=== PATIENT | female | born 1960 ===

== ENCOUNTER 2021-05-13 10:00 | Inpatient (IN) | payer OTHER ==
[~2021-05-13] VITALS: Ht 160 cm; Wt 81.6 kg
[2021-05-21] MEDS ORDERED: BACTRIM DS TAB1 EACH PO (06:16)
[2021-05-21] MEDS ORDERED: XARELTO10 MG PO (06:16)
[2021-05-21] MEDS ORDERED: OXYC1TAB9 PO (06:16)
[2021-05-21] MEDS ORDERED: INTEGRA PLUS C1 EACH PO (06:16)
== END 2021-05-21 12:19 | DRG 470 ==
LOC: O/R 05-19 05:45 → SURH 05-19 05:45
PROVIDERS: ADMIT Orthopaedic Surgery Sports Medicine; ATTEND Orthopaedic Surgery Sports Medicine
PROC: 0SRD0J9 Replacement of Left Knee Joint with Synthetic Substitute, Cemented, Open Approach (ICD-10-PCS; principal; 2021-05-19 07:00)
DX: M17.12 Unilateral primary osteoarthritis, left knee (principal)

== ENCOUNTER 2025-09-13 11:55 | Inpatient (IN) | payer OTHER ==
[~2025-09-13] VITALS: Ht 91.4 cm; Wt 80.7 kg
[~2025-09-13 11:55] MED LIST: BACTRIM DS TAB1 EACH PO; INTEGRA PLUS C1 EACH PO; OXYC1TAB9 PO; XARELTO10 MG PO
[2025-09-13 13:38] VITALS: BP 131/82
[2025-09-17] MEDS ORDERED: BUPIVACAINE HCL/Mpf 0.5% 10ML VIAL ONE (06:52)
[2025-09-17] MEDS ORDERED: KETOROLAC TROMETHAMINE 60 MG VIAL IM ONE (06:52)
[2025-09-17] MEDS ORDERED: LIDOCAINE HCL 1%/EPINEPHRINE 20ML VIAL IJ ONE (06:53)
[2025-09-17] MEDS ORDERED: TRANEXAMIC ACID 100MG/1ML (1000MG) AMPUL ONE (06:53)
[2025-09-17] MEDS ORDERED: CEFAZOLIN SODIUM 1,000 MG VIAL ONE (06:53)
[2025-09-17] MEDS ORDERED: GENTAMICIN SULFATE 40 MG/ML VIAL IV SCH (10:03)
[2025-09-17] MEDS ORDERED: SODIUM CHLORIDE 0.45 % 1,000 ML IV SCH (10:15)
[2025-09-17] MEDS ORDERED: ONDANSETRON HCL 2 MG/ML VIAL IV PRN (10:15)
[2025-09-17] MEDS ORDERED: MORPHINE SULFATE 4 MG/ML CARTRIDGE IV PRN (10:15)
[2025-09-17] MEDS ORDERED: CEFAZOLIN SODIUM 1,000 MG VIAL IV SCH (12:00)
[2025-09-17] MEDS ORDERED: GENTAMICIN SULFATE 40 MG/ML VIAL ONE (12:59)
[2025-09-17] MEDS ORDERED: ONDANSETRON HCL 2 MG/ML VIAL IV ONE (13:10)
[2025-09-17] MEDS ORDERED: ONDANSETRON HCL 2 MG/ML VIAL ONE (13:23)
[2025-09-17 16:50] VITALS: BP 122/75; O2SAT 99
[2025-09-18 00:30] VITALS: BP 115/70; O2SAT 98
[2025-09-18 06:22] LABS: BASO % 0.3 % (0.1-1.2); EOS # 0.12 (0.04-0.54); EOS % 1.2 % (0.7-7.0); LYMPH # 1.60 (1.18-3.74); LYMPH % 16.4 % (19.3-53.1); MEAN PLATELET VOLUME 10.40 fl (9.4-12.4); MONO # 1.07 (0.24-0.82); MONO % 11.0 % (4.7-12.5); NEUT # 6.89 (1.56-6.13); NEUT % 70.8 % (34.0-71.1); RED CELL DISTRIBUTION WIDTH 12.7 % (11.6-14.4)
[2025-09-18 08:32] VITALS: BP 114/70; O2SAT 96
[2025-09-18] MEDS ORDERED: ACETAMINOPHEN WITH CODEINE 1 UDTAB TABLET PO PRN ×2 (08:45→15:52)
[2025-09-18] MEDS ORDERED: IRON FUM,PS/FOLIC/BCOMP,C NO.9 1 CAP CAPSULE PO SCH (09:00)
[2025-09-18] MEDS ORDERED: CELECOXIB 200 MG CAPSULE PO SCH (09:00)
[2025-09-18] MEDS ORDERED: SENNA/DOCUSATE SODIUM 1 TAB TABLET PO SCH (09:00)
[2025-09-18] MEDS ORDERED: RIVAROXABAN 10 MG TAB PO SCH (09:00)
[2025-09-18] MEDS ORDERED: BACITRACIN 28.35 GM OINT.TUBE TOP SCH (09:00)
[2025-09-18 15:45] LABS: ALT/SGPT 26.0 U/L (12-78); AST/SGOT 18.0 U/L (15-37); BILIRUBIN TOTAL 0.68 mg/dL (0.3-1.2); BUN CREA RATIO 13.0 (7.0-25.0); CREATININE SERUM 0.85 mg/dL (0.55-1.02); GFR 67.77; GLOBULINA 3.3 G/DL (2.4-3.5); GLUCOSE FASTING 138.0 mg/dL (65-100); OSMOLALITY SERUM 277.0 MOSM/KG (275-295)
[2025-09-18 16:03] LABS: COVID-19 AG NEGATIVE (NEGATIVE)
[2025-09-18 16:51] VITALS: BP 129/71; O2SAT 96
[2025-09-19 00:30] VITALS: BP 125/73; O2SAT 100
[2025-09-19] MEDS ORDERED: Septra Ds Tablet PO (06:28)
[2025-09-19] MEDS ORDERED: INTEGRA PLUS C1 EACH PO (06:28)
[2025-09-19] MEDS ORDERED: XARELTO10 MG PO (06:29)
[2025-09-19] MEDS ORDERED: ACETAMINOPHEN-1 EAC2 PO (06:30)
[2025-09-19] MEDS ORDERED: NEURONTIN600 M1 PO (06:31)
[2025-09-19 07:45] LABS: BASO % 0.2 % (0.1-1.2); EOS # 0.24 (0.04-0.54); EOS % 2.0 % (0.7-7.0); LYMPH # 1.40 (1.18-3.74); LYMPH % 11.6 % (19.3-53.1); MEAN PLATELET VOLUME 10.30 fl (9.4-12.4); MONO # 1.22 (0.24-0.82); MONO % 10.1 % (4.7-12.5); NEUT # 9.14 (1.56-6.13); NEUT % 75.8 % (34.0-71.1); RED CELL DISTRIBUTION WIDTH 12.7 % (11.6-14.4)
[2025-09-19 08:34] VITALS: BP 123/70; O2SAT 98
[2025-09-19] MEDS ORDERED: SULFAMETHOXAZOLE/TRIMETHOPRIM DS 1 TAB PO SCH (09:00)
== END 2025-09-19 15:29 | disposition home or self-care (01) | DRG 470 ==
LOC: O/R 09-17 06:00 → SURH 09-17 06:00 → O/R 09-17 09:37 → SURH 09-17 12:15
PROVIDERS: ADMIT Orthopaedic Surgery Sports Medicine; ATTEND Orthopaedic Surgery Sports Medicine
PROC: 0SRC0J9 Replacement of Right Knee Joint with Synthetic Substitute, Cemented, Open Approach (ICD-10-PCS; principal; 2025-09-17 09:30)
DX: M17.11 Unilateral primary osteoarthritis, right knee (principal)